=== PATIENT | male | born 1945 | race Caucasian/White ===

== ENCOUNTER 2021-01-10 10:08 | Observation (INO) | payer MEDICARE ==
[2021-01-10] MEDS ORDERED: SODIUM CHLORIDE 0.9% 800 ML IV ONE (11:03)
[2021-01-10] MEDS ORDERED: ASPIRIN 325 MG TAB PO STA (11:06)
[2021-01-10] MEDS ORDERED: ALPRAZolam 0.25 MG TAB PO PRN (11:06)
[2021-01-10] MEDS ORDERED: ATORVASTATIN 80 MG TAB PO STA (11:06)
[2021-01-10] MEDS ORDERED: NITROGLYCERIN SL TABS 0.4 MG TAB SUBLINGUAL PRN ×2 (11:06→12:56)
[2021-01-10] MEDS ORDERED: SODIUM CHLORIDE 0.9% 1,000 ML in EMPTY BAG 1 BAG IV ONE (11:06)
[2021-01-10] MEDS ORDERED: ALPRAZolam 0.5 MG TAB PO PRN (11:06)
[2021-01-10] MEDS ORDERED: VERAPAMIL 2.5 MG/ML 2 ML AMP ONE (11:19)
[2021-01-10] MEDS ORDERED: LIDOCAINE 1% INJ 10MG/ML (20 ML MDV) ONE (11:19)
[2021-01-10] MEDS ORDERED: MIDAZOLAM 2 MG/2 ML VIAL IV ONE (11:35)
[2021-01-10] MEDS ORDERED: LIDOCAINE 1% INJ 10MG/ML (20 ML MDV) SQ ONE (11:40)
[2021-01-10] MEDS ORDERED: BIVALIRUDIN BOLUS 250 MG/50 ML IV ONE (11:43)
[2021-01-10] MEDS ORDERED: BIVALIRUDIN 250 MG in SODIUM CHLORIDE 0.9% 50 ML IV ONE (11:44)
[2021-01-10] MEDS ORDERED: NITROGLYCERIN 1000MCG/10ML SYRINGE INTRACORON ONE (11:55)
[2021-01-10] MEDS ORDERED: niCARdipine 25 MG/10 ML VIAL ONE (12:03)
[2021-01-10] MEDS ORDERED: niCARdipine Syringe (1,000 mcg/10 mL) INTRACORON ONE (12:05)
[2021-01-10] MEDS ORDERED: fentaNYL (PF) 50 MCG/ML 2 ML AMP ONE (12:27)
[2021-01-10] MEDS ORDERED: fentaNYL (PF) 50 MCG/ML 2 ML AMP IV ONE (12:28)
[2021-01-10] MEDS ORDERED: TICAGRELOR 90 MG TAB PO ONE (12:30)
[2021-01-10] MEDS ORDERED: TICAGRELOR 90 MG TAB ONE (12:30)
[2021-01-10] MEDS ORDERED: IOPAMIDOL-370 125ML BTL INJ ONE (12:36)
[2021-01-10] MEDS ORDERED: MAG HYDROX/AL HYDROX/SIMETH 30 ML CUP PO PRN (12:56)
[2021-01-10] MEDS ORDERED: RX INFO: IV CONTRAST WAS GIVEN 1 EACH MISC MISCELLANE PRN (12:56)
[2021-01-10] MEDS ORDERED: ATROPINE SULFATE 0.1 MG/ML 10ML SYRINGE IV PRN (12:56)
[2021-01-10] MEDS ORDERED: ZOLPIDEM 5 MG TAB PO PRN (12:56)
[2021-01-10] MEDS ORDERED: ONDANSETRON 4 MG/2 ML VIAL ONE (12:59)
[2021-01-10] MEDS ORDERED: SODIUM CHLORIDE 0.9% 1,000 ML IV SCH (13:00)
[2021-01-10] MEDS ORDERED: ONDANSETRON 4 MG/2 ML VIAL IVP PRN (13:19)
--- NOTE | 2021-01-10 13:53 | PTCA ---
PERCUTANEOUSTRANS CORORONARY ANGIOGRAPHY DATE OF SERVICE: January 10, 2021 PERFORMING PHYSICIAN: Azeem Burton MD PROCEDURE PERFORMED: 1. Successful stenting of the proximal to mid right coronary artery using a 4.0 x 23 mm Xience drug-eluting stent with an excellent angiographic result and reduction of stenosis from 99.9% to 0%. 2. Successful atherectomy of the proximal left anterior descending artery. 3. Successful stenting of the proximal left anterior descending artery using 3.5 x 23 mm Xience drug-eluting stent with an excellent angiographic result and reduction of stenosis from 90% to 0%. INDICATION: This is a 75-year-old gentleman with hypertension and dyslipidemia who presented to the hospital initially at [facility] with chest discomfort and ruled in for acute coronary syndrome. He underwent a heart catheterization over there and that revealed critical disease involving the RCA and LAD and because of that he was brought today to undergo an intervention on both. APPROACH: Right common femoral artery. COMPLICATION: None. LEVEL OF SEDATION: Moderate with sedation length of 61 minutes. PROCEDURE DESCRIPTION: Please refer to the diagnostic heart catheterization that was performed earlier today at [facility]. After obtaining an informed consent, the patient was brought to the cardiac laboratory operations coordinator. The right common femoral artery was cannulated using micropuncture technique, the micropuncture wire passed easily then I placed a 6-Thai sheath at the right femoral artery. Anticoagulation at that point was initiated using Angiomax and the patient was given a bolus and drip per protocol. After that I did engage the RCA using JR4 guide wire. The RCA after that was wired using a Whisper wire. Subsequently I did PTCA ballooning of the RCA using a 2.5 x 15 mm balloon before I deployed 4.0 x 23 mm Xience drug-eluting stent where the stent was positioned under fluoroscopy guidance and deployed under 12 atmospheres for 20 seconds. I post-dilated the stent using 4 mm NC balloon which was inflated under 18 atmospheres for 20 seconds with the following angiogram showing excellent angiographic results. For the left anterior descending artery, I did engage the left main using an XB3.5 LAD guide. I did wire the LAD initially using a long Whisper wire. Then I did exchange my wire into ViperWire using Teleport catheter. After that subsequently, I did atherectomy of the proximal left anterior descending artery using the orbital atherectomy device using 2 runs under low speed. After that, balloon angioplasty was performed using 3.0 x 15 mm balloon before I deployed 3.5 x 23 mm Xience drug-eluting stent where the stent again was positioned under fluoroscopy guidance and deployed under its nominal pressure. The final angiogram showed excellent angiographic results and the procedure was completed without any complication. POSTPROCEDURE MANAGEMENT: 1. Dual anti-platelet therapy. 2. Risk factor modifications. 3. Aggressive cholesterol control. 4. Follow up with the patient. MMODL / IJN: [id number] /
[2021-01-10 13:55] VITALS: BMI 26.6
--- NOTE | 2021-01-10 15:47 | LTR ---
January 10, 2021 Re: Ramon Kumar Dear Dr. Tobias: Mr. Ramon Kumar underwent today heart catheterization and that revealed critical disease involving the RCA and LAD. He underwent successful stenting of both with an excellent angiographic result and without any complication. I want to thank you for allowing us to participate in his care and please do not hesitate to call if you have any question or concern. Sincerely, Azeem Burton MD MMCLAUDIA / JODIEN: [id number] /
[2021-01-10] MEDS: ACETAMINOPHEN TAB 325 MG TAB PO PRN ×2 (16:00→22:56)
[2021-01-10] MEDS: TICAGRELOR 90 MG TAB PO SCH (20:13)
[2021-01-10] MEDS ORDERED: ATORVASTATIN 80 MG TAB PO SCH (21:00)
[2021-01-11 00:18] VITALS: RESP 16
[2021-01-11] MEDS: TICAGRELOR 90 MG TAB PO SCH (08:56)
[2021-01-11] MEDS ORDERED: ASPIRIN 81 MG PO SCH (09:00)
[2021-01-11 09:29] LABS: African American GFR (CKD) >90 (>60 ml/min/1.73 sqM); Non-African American GFR(CKD) 85 (>60 ml/min/1.73 sqM)
[2021-01-11 09:32] VITALS: TEMP 97.5
[2021-01-11] MEDS: ACETAMINOPHEN TAB 325 MG TAB PO PRN (09:35)
[2021-01-11] MEDS ORDERED: lisinopriL 5 MG TAB PO SCH (09:45)
--- NOTE | 2021-01-11 12:13 | P.HPIM ---
History of Present Illness 72-year-old pleasant male was admitted at [facility] for chest pain patient is found to have a anterolateral ST-T wave changes with the ST depressions with mildly elevated troponin patient was started on heparin Underwent Cardiac Catheterization Which Showed Occlusion of RCA and LAD. Patient Was Subsequently Transferred Here. Patient Received Stents to Mid RCA and Proximal LAD. Patient had an ejection fraction of around 50 wasn't the patient is clinically doing well patient was started on dual antiplatelet therapy beta prudencio and a statin and an ROSELINE inhibitor and patient will be discharged today. Review of Systems REVIEW OF SYSTEMS: CONSTITUTIONAL: No fever, no malaise, no fatigue. HEENT: No recent visual problems or hearing problems. Denied any sore throat. CARDIOVASCULAR: No chest pain, orthopnea, PND, no palpitations, no syncope. PULMONARY: No shortness of breath, no cough, no hemoptysis. GASTROINTESTINAL: No diarrhea, no nausea, no vomiting, no abdominal pain. NEUROLOGICAL: No headaches, no weakness, no numbness. HEMATOLOGICAL: Denies any bleeding or petechiae. GENITOURINARY: Denies any burning micturition, frequency, or urgency. MUSCULOSKELETAL/RHEUMATOLOGICAL: Denies any joint pain, swelling, or any muscle pain. ENDOCRINE: Denies any polyuria or polydipsia. The rest of the 14-point review of systems is negative. Past Medical History Additional Past Medical History / Comment(s): & pancreatitis History of Any Multi-Drug Resistant Organisms: None Reported Past Surgical History: Cholecystectomy, Hernia Repair Past Anesthesia/Blood Transfusion Reactions: No Reported Reaction Past Psychological History: No Psychological Hx Reported Smoking Status: Former smoker - Past Family History Son(s) Additional Family Medical History / Comment(s): cardiac valve replacement x3, son from pancreatitis Father Family Medical History: Congestive Heart Failure (CHF) Mother Family Medical History: Renal Disease Medications and Allergies Home Medications Medication Instructions Recorded Confirmed Type Aspirin 81 mg PO DAILY #30 chew 01/11/21 Rx Atorvastatin [Lipitor] 80 mg PO HS #30 tab 01/11/21 Rx Nitroglycerin Sl Tabs [Nitrostat] 0.4 mg SUBLINGUAL Q5M PRN #30 tab 01/11/21 Rx Ticagrelor [Brilinta] 90 mg PO BID #60 tab 01/11/21 Rx lisinopriL [Zestril] 5 mg PO DAILY #30 tab 01/11/21 Rx Allergies Allergy/AdvReac Type Severity Reaction Status Date / Time No Known Allergies Allergy Verified 01/10/21 14:58 Physical Exam Vitals: Vital Signs Temp Pulse Resp BP Pulse Ox 01/11/21 08:00 97.5 F L 51 L 16 158/82 94 L 01/11/21 03:47 97.4 F L 53 L 16 167/81 99 01/11/21 00:00 97.5 F L 52 L 16 148/83 97 01/10/21 20:00 97.6 F 55 L 18 141/77 97 01/10/21 17:15 48 L 16 167/80 96 01/10/21 16:15 55 L 16 141/73 95 01/10/21 15:15 56 L 151/77 01/10/21 14:45 52 L 154/84 01/10/21 14:15 45 L 16 160/74 94 L 01/10/21 14:00 45 L 160/76 01/10/21 13:49 45 L 16 01/10/21 13:45 45 L 158/80 01/10/21 13:30 97.6 F 44 L 16 165/79 96 01/10/21 13:00 54 L 18 170/79 98 Intake and Output 01/10/21 01/11/21 01/11/21 22:59 06:59 14:59 Intake Total 240 240 120 Output Total 500 500 Balance -260 -260 120 Intake: Oral 240 240 120 Output: Urine 500 500 Other: Voiding Method Urinal Urinal # Voids 1 1 Weight 83.5 kg PHYSICAL EXAMINATION: GENERAL: The patient is alert and oriented x3, not in any acute distress. Well developed, well nourished. HEENT: Pupils are round and equally reacting to light. EOMI. No scleral icterus. No conjunctival pallor. Normocephalic, atraumatic. No pharyngeal erythema. No thyromegaly. CARDIOVASCULAR: S1 and S2 present. No murmurs, rubs, or gallops. PULMONARY: Chest is clear to auscultation, no wheezing or crackles. ABDOMEN: Soft, nontender, nondistended, normoactive bowel sounds. No palpable organomegaly. MUSCULOSKELETAL: No joint swelling or deformity. EXTREMITIES: No cyanosis, clubbing, or pedal edema. NEUROLOGICAL: Gross neurological examination did not reveal any focal deficits. SKIN: No rashes. Results CBC & Chem 7: 01/11/21 08:02 Thrombosis Risk Factor Assmnt - Choose All That Apply Any of the Below Risk Factors Present?: Yes Each Factor Represents 1 point: Medical pt on bed rest Other Risk Factors: Yes Each Risk Factor Represents 2 Points: Age 61-74 years Other congenital or acquired thrombophilia - If yes, enter type in comment: No Thrombosis Risk Factor Assessment Total Risk Factor Score: 3 Thrombosis Risk Factor Assessment Level: Moderate Risk Assessment and Plan Plan: -Acute non-ST elevation myocardial infarction: Patient is status post cardiac catheterization and stenting as mentioned above. -Acute renal failure renal azotemia improved now -Hyperlipidemia -Hypertension As mentioned above patient will be discharged today
--- NOTE | 2021-01-11 12:13 | P.DS ---
Providers Date of admission: 01/10/21 10:08 Attending physician: Beata Short Consults: 01/10/21 12:56 Consult Physician Routine Consulting Provider: [facility] Consult Reason/Comments: Post Interventional patient Do you want consulting provider notified?: Already Contacted Primary care physician: Azeem Burton [facility] Hospital Course: As mentioned in HPI Plan - Discharge Summary Discharge Rx Participant: No New Discharge Prescriptions: New Aspirin 81 mg PO DAILY #30 chew Ticagrelor [Brilinta] 90 mg PO BID #60 tab Atorvastatin [Lipitor] 80 mg PO HS #30 tab Nitroglycerin Sl Tabs [Nitrostat] 0.4 mg SUBLINGUAL Q5M PRN #30 tab PRN Reason: Chest Pain lisinopriL [Zestril] 5 mg PO DAILY #30 tab Discharge Medication List Aspirin 81 mg PO DAILY #30 chew 01/11/21 [Rx] Atorvastatin [Lipitor] 80 mg PO HS #30 tab 01/11/21 [Rx] Nitroglycerin Sl Tabs [Nitrostat] 0.4 mg SUBLINGUAL Q5M PRN #30 tab 01/11/21 [Rx] Ticagrelor [Brilinta] 90 mg PO BID #60 tab 01/11/21 [Rx] lisinopriL [Zestril] 5 mg PO DAILY #30 tab 01/11/21 [Rx] Follow up Appointment(s)/Referral(s): Azeem Burton MD [Primary Care Provider] - 1 Week Patient Instructions/Handouts: Cardiac Rehabilitation (ED), Coronary Intravascular Stent Placement (DC), After Radial Heart Catheterization (GEN), Procedural Sedation (ED), Angio-Seal (GEN) Discharge Disposition: HOME SELF-CARE
[2021-01-11 12:16] VITALS: BP 154/77; PULSE 52
--- NOTE | 2021-01-11 14:14 | P.PN ---
Subjective Progress Note Date: 01/11/21 HISTORY OF PRESENT ILLNESS: Patient is status post cardiac catheterization with stenting of the proximal to mid RCA, arthrectomy of the proximal left anterior descending artery, and s tenting of the proximal LAD. Patient examined this morning at the bedside. Patient denies chest pain or pressure. He denies shortness of breath. Patient with resting bradycardia with heart rate in the 50s. He is currently not on any beta blockers. Blood pressure elevated this morning with a systolic in the 150s. PHYSICAL EXAM: VITAL SIGNS: Reviewed. GENERAL: Well-developed in no acute distress. NECK: Supple. No JVD or thyromegaly LUNGS: Respirations even and unlabored. Lungs essentially clear to auscultation bilaterally. HEART: Regular rate and rhythm. S1 and S2 heard. EXTREMITIES: Normal range of motion. No clubbing or cyanosis. Peripheral pulses intact. No lower extremity edema. Cath site with pulse present. ASSESSMENT: Non-STEMI, status post cardiac catheterization with PCI to LAD and RCA Hypertension Hyperlipidemia PLAN: Continue dual antiplatelet therapy with aspirin and Brilinta Continue Lipitor Add Lisinopril 5 mg daily for optimal blood pressure control No beta prudencio added to patient's regimen secondary to resting bradycardia Patient is stable for discharge home today from a cardiac stand point. He is to follow up outpatient with Dr. Burton Nurse practitioner note has been reviewed by physician. Signing provider agrees with the documented findings, assessment, and plan of care. Objective - Vital Signs Vital signs: Vital Signs Temp 97.5 F L 01/11/21 08:00 Pulse 52 L 01/11/21 12:00 Resp 16 01/11/21 12:00 BP 154/77 01/11/21 12:00 Pulse Ox 97 01/11/21 12:00 Intake & Output 01/10/21 01/11/21 01/11/21 18:59 06:59 18:59 Intake Total 173 480 120 Output Total 1000 Balance 173 -520 120 Weight 88.904 kg 83.5 kg Intake: IV 173 Oral 480 120 Output: Urine 1000 Other: Voiding Method Urinal # Voids 1 1 - Labs CBC & Chem 7: 01/11/21 08:02
== END 2021-01-11 15:16 | disposition home or self-care (01) ==
LOC: 2ORMAIN 10:08 → 3SCARD 12:59
PROVIDERS: ADMIT Internal Medicine; ATTEND Internal Medicine
DX: I21.4 Non-ST elevation (NSTEMI) myocardial infarction (principal); I25.10 Atherosclerotic heart disease of native coronary artery without angina pectoris; E78.5 Hyperlipidemia, unspecified; N17.9 Acute kidney failure, unspecified; I10 Essential (primary) hypertension; R00.1 Bradycardia, unspecified; Z87.19 Personal history of other diseases of the digestive system; Z90.49 Acquired absence of other specified parts of digestive tract; Z87.891 Personal history of nicotine dependence; Z79.82 Long term (current) use of aspirin; Z79.899 Other long term (current) drug therapy; Z79.02 Long term (current) use of antithrombotics/antiplatelets; Z82.49 Family history of ischemic heart disease and other diseases of the circulatory system; Z83.79 Family history of other diseases of the digestive system
CPT/HCPCS: 82565; G0379; G0378 ×2; C9600; C9602; C1760; C1769 ×4; C1887 ×2; C1725 ×3; C1894; C1724; C1874; J2250; J2405; J2001; J3010; J0583; Q9967

== ENCOUNTER → 2023-04-04 | Outpatient (CLI) | payer MEDICARE ==
--- NOTE | 2023-04-06 08:30 | CT ---
EXAMINATION TYPE: CT cervical spine wo con DATE OF EXAM: 04/04/2023 COMPARISON: Outside CT dated December 21, 2022 HISTORY: Cervical fracture from fall in December CT DLP: [address] of the cervical spine was performed with bone and soft tissue window settings submitted . Coronal and sagittal reconstruction is obtained. Previously noted fracture of the right lateral mass of C2 is redemonstrated as portions of the fractu re continue to be visible however there is interval callus formation noted. No additional fractures a re seen. Moderate multilevel degenerative disc space narrowing and spondylosis seen at C4-5, C5-6 and C6-7. Central stenosis are not excluded C5-6. Generative change of the cervical apophyseal joints re sulting in bilateral neural foraminal encroachment at each of these levels. IMPRESSION: Interval partial union of right lateral mass fracture C2. Portions of the fracture contin ue to be visible however there is interval callus formation.
== END | disposition home or self-care (01) ==
LOC: RADCTMAIN 11:11
PROVIDERS: ATTEND Orthopaedic Surgery
DX: S12.100A Unspecified displaced fracture of second cervical vertebra, initial encounter for closed fracture (principal); M47.812 Spondylosis without myelopathy or radiculopathy, cervical region; M50.321 Other cervical disc degeneration at C4-C5 level; X58.XXXA Exposure to other specified factors, initial encounter
CPT/HCPCS: 72125

== ENCOUNTER 2024-02-22 20:57 | Emergency (ER) | payer MEDICARE ==
[2024-02-22 21:28] VITALS: TEMP 98.4
[2024-02-22] MEDS: SODIUM CHLORIDE 0.9% 1,000 ML IV STA (21:53)
[2024-02-22 22:04] LABS: Basophils % (A) 0 %; Eosinophils # (A) 0.1 k/uL (0-0.7); Eosinophils % (A) 1 %; HCT 42.2 % (39.0-53.0); HGB 14.1 gm/dL (13.0-17.5); Lymphocytes # (A) 1.6 k/uL (1.0-4.8); Lymphocytes % (A) 14 %; MCH 32.6 pg (25.0-35.0); MCHC 33.5 g/dL (31.0-37.0); MCV 97.4 fL (80.0-100.0); Mean Platelet Volume 8.2; Monocytes # (A) 0.4 k/uL (0-1.0); Monocytes % (A) 4 %; Neutrophils % (A) 80 %; Platelet Count 192 k/uL (150-450); RBC 4.33 m/uL (4.30-5.90); RDW 13.1 % (11.5-15.5); WBC 11.3 k/uL (3.8-10.6)
[2024-02-22 22:06] LABS: Appearance,Urine Clear (Clear); Bilirubin,Urine Negative (Negative); Blood,Urine Negative (Negative); Color,Urine Colorless; Glucose,Urine (UA) Negative (Negative); Ketones,Urine Negative (Negative); Leukocyte Esterase,Urine Negative (Negative); Nitrite,Urine Negative (Negative); PH, Urine 5.5 (5.0-8.0); Protein,Urine Negative (Negative); Specific Gravity,Urine 1.003 (1.001-1.035); Urobilinogen,Urine <2.0 mg/dL (<2.0)
--- NOTE | 2024-02-22 22:09 | CT ---
EXAMINATION TYPE: CT brain wo con CT DLP: 1130.4 mGycm, Automated exposure control for dose reduction was used. DATE OF EXAM: 02/22/2024 9:54 PM COMPARISON: None. CLINICAL INDICATION:Male, 78 years old with history of weakness, Increased weakness TECHNIQUE: Brain: Axial CT images of the brain were obtained with coronal and sagittal reformats created and rev iewed. Contrast used: None. Oral contrast used: None. FINDINGS: Extra-axial spaces: No abnormal extra-axial fluid collections. Basilar cisterns are patent. Ventricular system: Ventricles appear dilated in proportion to the degree of cerebral atrophy. Cerebral parenchyma: No increased attenuation to suggest acute intraparenchymal hemorrhage. The gra y-white matter interface appears maintained. Mild generalized brain atrophy. Scattered hypoattenuat ing areas are seen within the cerebral white matter, nonspecific but most often seen with chronic justine rovascular ischemic changes; mild in degree. Cerebellum: No acute abnormality. Mass effect: No evidence of mass effect or midline shift. Intracranial vasculature: Atherosclerotic calcifications of the larger arteries near the skull base. Soft tissues: No acute or concerning abnormality. Visualized orbits: Orbital contents appear grossly intact. Calvarium/osseous structures: No evidence of calvarial fracture. Paranasal sinuses and mastoid air cells: Clear. MRI is more sensitive for detecting acute processes such as infarct, and may be considered if clinica lly warranted. IMPRESSION: 1. No acute intracranial CT abnormality. 2. Mild atrophy and chronic microvascular ischemic changes.
[2024-02-22 22:14] VITALS: PULSE 64
[2024-02-22 22:20] LABS: INR 0.9 (<1.2); Partial Thromboplastin Time 22.6 sec (22.0-30.0); Prothrombin Time 10.2 sec (10.0-12.5)
[2024-02-22 22:28] LABS: ALT 23 U/L (4-49); AST 29 U/L (17-59); African American GFR (CKD) >90 (>60 ml/min/1.73 sqM); Albumin 3.6 g/dL (3.5-5.0); Alkaline Phosphatase 102 U/L (38-126); Anion Gap 6 mmol/L; Blood Urea Nitrogen 15 mg/dL (9-20); Calcium 8.8 mg/dL (8.4-10.2); Carbon Dioxide 24 mmol/L (22-30); Chloride 113 mmol/L (98-107); Glucose 94 mg/dL (74-99); Magnesium 1.9 mg/dL (1.6-2.3); Non-African American GFR(CKD) 82 (>60 ml/min/1.73 sqM); Potassium 3.9 mmol/L (3.5-5.1); Sodium 143 mmol/L (137-145); Total Bilirubin 0.3 mg/dL (0.2-1.3); Total Protein 6.2 g/dL (6.3-8.2)
[2024-02-22 23:00] LABS: Alcohol 187 mg/dL
--- NOTE | 2024-02-22 23:02 | ED ---
General Adult HPI - General Chief complaint: Alcohol Stated complaint: alcohol Time Seen by Provider: 02/22/24 21:22 Source: patient, EMS Mode of arrival: EMS Limitations: no limitations - History of Present Illness Initial comments: Patient is a 78-year-old male who presents emergency department complaining of alcohol intoxication. EMS was called as the patient states he felt different earlier. [place] weak after rolling out of bed. Denies hitting his head or loss consciousness. Denies any headache or blurry vision. Endorses drinking alcohol as it is the anniversary of his son's passing yesterday. States he had multiple gin and tonics earlier today. Denies being on blood thinners. Denies any fevers, chills, chest pain, abdominal pain, nausea, vomiting. States that when he rolled onto the floor he felt weak and unable to move however this is passed. Has been ambulatory here. Denies any other acute complaints at this time. Presents for further evaluation. Has a history of chronic alcohol abuse. He is asking to go home. Presents initially by himself. - Related Data Previous Rx's Medication Instructions Recorded Aspirin 81 mg PO DAILY #30 chew 01/11/21 Atorvastatin [Lipitor] 80 mg PO HS #30 tab 01/11/21 Nitroglycerin Sl Tabs [Nitrostat] 0.4 mg SUBLINGUAL Q5M PRN #30 tab 01/11/21 Ticagrelor [Brilinta] 90 mg PO BID #60 tab 01/11/21 lisinopriL [Zestril] 5 mg PO DAILY #30 tab 01/11/21 Allergies Allergy/AdvReac Type Severity Reaction Status Date / Time No Known Allergies Allergy Verified 01/10/21 14:58 Review of Systems ROS Statement: Those systems with pertinent positive or pertinent negative responses have been documented in the HPI. Review of Systems: CONST: Denies fever EYES: Denies blurry vision ENT: Denies nasal congestion C/V: Denies Chest pain RESP: Denies shortness of breath GI: Denies abdominal pain : Denies dysuria SKIN: Denies rash. MSK: Denies joint pain. NEURO: Denies headache ROS Other: All systems not noted in ROS Statement are negative. Past Medical History Additional Past Medical History / Comment(s): & pancreatitis History of Any Multi-Drug Resistant Organisms: None Reported Past Surgical History: Cholecystectomy, Hernia Repair Past Anesthesia/Blood Transfusion Reactions: No Reported Reaction Past Psychological History: No Psychological Hx Reported Smoking Status: Former smoker - Past Family History Son(s) Additional Family Medical History / Comment(s): cardiac valve replacement x3, son from pancreatitis Father Family Medical History: Congestive Heart Failure (CHF) Mother Family Medical History: Renal Disease General Exam - General Exam Comments Initial Comments: General: Appears acutely intoxicated with alcohol. HEAD: Normal with no signs of head trauma. Negative Gatica sign. Negative raccoon eyes. EYES: PERRLA, EOMI, conjunctiva normal, no discharge. Pupils are 3 mm and equal bilaterally. ENT: Hearing grossly intact, normal oropharynx. RESPIRATORY: Clear breath sounds bilaterally. No wheezes, rales, or rhonchi. C/V: Regular rate and rhythm. S1 and S2 auscultated, no edema, peripheral pulses 2+ and intact throughout ABD: Abd is soft, nontender, nondistended EXT: Normal range of motion, no obvious deformity SKIN: No rashes or lesions observed on exposed skin. NEURO: Alert and oriented x 4. Cranial nerves II-XII intact. No focal sensory or strength deficits. ECS of 15. NIH is 0. Limitations: no limitations Course Vital Signs 02/22/24 02/22/24 02/22/24 21:01 21:55 23:00 Temperature 98.4 F Pulse Rate 94 64 64 Respiratory 16 18 24 Rate Blood Pressure 127/91 122/80 143/77 O2 Sat by Pulse 97 97 Oximetry Medical Decision Making - Medical Decision Making Was pt. sent in by a medical professional or institution (IRA[facility] Conrad, SCHO[employer]GE LEAD TEACHER, urgent care, hospital, or snf...) When possible be specific @ -No Did you speak to anyone other than the patient for history (EMS, parent, family, police, friend...)? What history was obtained from this source @ -No Did you review nursing and triage notes (agree or disagree)? Why? @ -I reviewed and agree with nursing and triage notes Were old charts reviewed (outside hosp., previous admission, EMS record, old EKG, old radiological studies, urgent care reports/EKG's, snf records)? Report findings @ -Old charts reviewed Differential Diagnosis (chest pain, altered mental status, abdominal pain women, abdominal pain men, vaginal bleeding, weakness, fever, dyspnea, syncope, headache, dizziness, GI bleed, back pain, seizure, CVA, palpatations, mental health, musculoskeletal)? @ -Alcohol intoxication, electrolyte abnormality, intracranial injury. This list is not all inclusive. EKG interpreted by me (3pts min.). @ -As above X-rays interpreted by me (1pt min.). @ -None done CT interpreted by me (1pt min.). @ -CT brain reveals no obvious acute intracranial process. U/S interpreted by me (1pt. min.). @ -None done What testing was considered but not performed or refused? (CT, X-rays, U/S, labs)? Why? @ -None What meds were considered but not given or refused? Why? @ -None Did you discuss the management of the patient with other professionals (professionals i.e. , PA, SCHOOL AGE LEAD TEACHER, lab, RT, psych nurse, social sciences department chair, box feeder, teacher, corporate security officer, case fitter)? Give summary @ -No Was smoking cessation discussed for >3mins.? @ -No Was critical care preformed (if so, how long)? @ -No Were there social determinants of health that impacted care today? How? (Homelessness, low income, unemployed, alcoholism, drug addiction, transp ortation, low edu. Level, literacy, decrease access to med. care, care home, rehab)? @ -No Was there de-escalation of care discussed even if they declined (Discuss DNR or withdrawal of care, Hospice)? DNR status @ -No What co-morbidities impacted this encounter? (DM, HTN, Smoking, COPD, CAD, Cancer, CVA, ARF, Chemo, Hep., AIDS, mental health diagnosis, sleep apnea, morbid obesity)? @ -None Was patient admitted / discharged? Hospital course, mention meds given and route, prescriptions, significant lab abnormalities, going to OR and other pertinent info. @ -Based on patient's presentation and physical exam, presents emergency department complaining of weakness as well as a fall at home. States symptoms have all resolved. Would like to go home at this time. Does endorse drinking more alcohol than normal over the last 2 days as it is the anniversary of his son's passing. Keeps asking to leave at this time however patient is acutely toxic with alcohol and he does consent to CT brain as well as basic labs and EKG while we wait for family to arrive to take him home. Vital signs are currently within acceptable limits. He will be given IV fluids. No obvious injuries from falling out of bed. EKG showed no signs of acute ischemia. CT brain unremarkable. Laboratory studies within acceptable limits including normal urinalysis. Alcohol level is elevated at 187. At this time, family is at bedside. Patient remains unchanged from presentation. No acute complaints. Would like to go home. I believe this is reasonable as he has a ride home. He has no complaints at this time. Workup unremarkable. Strict return precautions discussed. I instructed the patient to follow up with their PCP in the next 1-3 days. I explained that the patient should return to the emergency department if they experience any worsening symptoms. Strict return precautions were discussed with the patient. The patient expressed understanding of these instructions. I answered all questions that the patient had. The patient was discharged home in good condition with their prescriptions and follow up information. Undiagnosed new problem with uncertain prognosis? @ -No Drug Therapy requiring intensive monitoring for toxicity (Heparin, Nitro, Insulin, Cardizem)? @ -No Were any procedures done? @ -No Diagnosis/symptom? @ -Alcohol intoxication, fall Acute, or Chronic, or Acute on Chronic? @ -Acute Uncomplicated (without systemic symptoms) or Complicated (systemic symptoms)? @ -Complicated Side effects of treatment? @ -No Exacerbation, Progression, or Severe Exacerbation? @ -No Poses a threat to life or bodily function? How? (Chest pain, USA, AR, pneumonia, PE, COPD, DKA, ARF, appy, cholecystitis, CVA, Diverticulitis, Homicidal, Suicidal, threat to staff... and all critical care pts) @ -Unlikely - Lab Data Result diagrams: 02/22/24 21:55 02/22/24 21:55 Lab Results 02/22/24 02/22/24 02/22/24 Range/Units 21:55 21:55 21:55 WBC 11.3 H (3.8-10.6) k/uL RBC 4.33 (4.30-5.90) m/uL Hgb 14.1 (13.0-17.5) gm/dL Hct 42.2 (39.0-53.0) % MCV 97.4 (80.0-100.0) fL MCH 32.6 (25.0-35.0) pg MCHC 33.5 (31.0-37.0) g/dL RDW 13.1 (11.5-15.5) % Plt Count 192 (150-450) k/uL MPV 8.2 Neutrophils % 80 % Lymphocytes % 14 % Monocytes % 4 % Eosinophils % 1 % Basophils % 0 % Neutrophils # 9.0 H (1.3-7.7) k/uL Lymphocytes # 1.6 (1.0-4.8) k/uL Monocytes # 0.4 (0-1.0) k/uL Eosinophils # 0.1 (0-0.7) k/uL Basophils # 0.0 (0-0.2) k/uL PT 10.2 (10.0-12.5) sec INR 0.9 (<1.2) APTT 22.6 (22.0-30.0) sec Sodium (137-145) mmol/L Potassium (3.5-5.1) mmol/L Chloride (98-107) mmol/L Carbon Dioxide (22-30) mmol/L Anion Gap mmol/L BUN (9-20) mg/dL Creatinine (0.66-1.25) mg/dL Est GFR (CKD-EPI)AfAm (>60 ml/min/1.73 sqM) Est GFR (CKD-EPI)NonAf (>60 ml/min/1.73 sqM) Glucose (74-99) mg/dL Calcium (8.4-10.2) mg/dL Magnesium (1.6-2.3) mg/dL Total Bilirubin (0.2-1.3) mg/dL AST (17-59) U/L ALT (4-49) U/L Alkaline Phosphatase (38-126) U/L Total Protein (6.3-8.2) g/dL Albumin (3.5-5.0) g/dL Urine Color Colorless Urine Appearance Clear (Clear) Urine pH 5.5 (5.0-8.0) Ur Specific [place] 1.003 (1.001-1.035) Urine Protein Negative (Negative) Urine Glucose (UA) Negative (Negative) Urine Ketones Negative (Negative) Urine Blood Negative (Negative) Urine Nitrite Negative (Negative) Urine Bilirubin Negative (Negative) Urine Urobilinogen <2.0 (<2.0) mg/dL Ur Leukocyte Esterase Negative (Negative) Serum Alcohol mg/dL 02/22/24 Range/Units 21:55 WBC (3.8-10.6) k/uL RBC (4.30-5.90) m/uL Hgb (13.0-17.5) gm/dL Hct (39.0-53.0) % MCV (80.0-100.0) fL MCH (25.0-35.0) pg MCHC (31.0-37.0) g/dL RDW (11.5-15.5) % Plt Count (150-450) k/uL MPV Neutrophils % % Lymphocytes % % Monocytes % % Eosinophils % % Basophils % % Neutrophils # (1.3-7.7) k/uL Lymphocytes # (1.0-4.8) k/uL Monocytes # (0-1.0) k/uL Eosinophils # (0-0.7) k/uL Basophils # (0-0.2) k/uL PT (10.0-12.5) sec INR (<1.2) APTT (22.0-30.0) sec Sodium 143 (137-145) mmol/L Potassium 3.9 (3.5-5.1) mmol/L Chloride 113 H (98-107) mmol/L Carbon Dioxide 24 (22-30) mmol/L Anion Gap 6 mmol/L BUN 15 (9-20) mg/dL Creatinine 0.91 (0.66-1.25) mg/dL Est GFR (CKD-EPI)AfAm >90 (>60 ml/min/1.73 sqM) Est GFR (CKD-EPI)NonAf 82 (>60 ml/min/1.73 sqM) Glucose 94 (74-99) mg/dL Calcium 8.8 (8.4-10.2) mg/dL Magnesium 1.9 (1.6-2.3) mg/dL Total Bilirubin 0.3 (0.2-1.3) mg/dL AST 29 (17-59) U/L ALT 23 (4-49) U/L Alkaline Phosphatase 102 (38-126) U/L Total Protein 6.2 L (6.3-8.2) g/dL Albumin 3.6 (3.5-5.0) g/dL Urine Color Urine Appearance (Clear) Urine pH (5.0-8.0) Ur Specific [place] (1.001-1.035) Urine Protein (Negative) Urine Glucose (UA) (Negative) Urine Ketones (Negative) Urine Blood (Negative) Urine Nitrite (Negative) Urine Bilirubin (Negative) Urine Urobilinogen (<2.0) mg/dL Ur Leukocyte Esterase (Negative) Serum Alcohol 187 mg/dL - EKG Data -: EKG Interpreted by Me EKG Comments: 12-lead Electrocardiogram Interpretation Note EKG was reviewed and interpreted by myself. 12-lead ECG performed at 2109 is interpreted by me as revealing sinus rhythm with PVCs and what appears to be a right bundle branch block. At a rate of 67 beats per minute. Borderline left axis deviation. NE interval is 177 ms, QRS duration is 127 ms, QTc is 437 ms.. There were no ST or T wave abnormalities to suggest myocardial ischemia or injury. R wave progression across the precordium was satisfactory. By my interpretation this EKG is non-diagnostic for acute ischemia. Disposition Clinical Impression: Fall, Alcohol intoxication Disposition: HOME SELF-CARE Condition: Good Instructions (If sedation given, give patient instructions): Fall Prevention for Older Adults (ED), Alcohol Intoxication (ED) Is patient prescribed a controlled substance at d/c from ED?: No Referrals: Micheline Carrillo MD [Primary Care Provider] - 1-2 days Time of Disposition: 23:00
[2024-02-22 23:40] VITALS: BP 143/77; RESP 24
== END 2024-02-22 23:10 | disposition home or self-care (01) ==
LOC: EC 20:57
DX: Z04.3 Encounter for examination and observation following other accident (principal); F10.129 Alcohol abuse with intoxication, unspecified; Z87.891 Personal history of nicotine dependence; Y90.6 Blood alcohol level of 120-199 mg/100 ml
CPT/HCPCS: 82075; 36415; 93005; 80053; 83735; 85025; 85610; 85730; 81003; 70450; 99285; 96360; G0480; Q9967; 80320

== ENCOUNTER → 2024-06-01 | Outpatient (CLI) | payer MEDICARE ==
--- NOTE | 2024-06-01 09:43 | MR ---
EXAMINATION TYPE: MR Prostate wo/w con DATE OF EXAM: 06/01/2024 9:13 AM COMPARISON: None. CLINICAL INDICATION:Male, 78 years old with history of R97.20 elevated PSA; Elevated PSA. TECHNIQUE: Multi-planar, multi-sequence imaging of the pelvis is performed prior to and following the uncomplicated administration of bolus intravenous gadolinium. CONTRAST: 8 Gadavist Interpretive Criteria: PI-RADS v2.1 SERUM PSA: 04-01-24 = 8.24 5-03-25 = 5.15 SURGICAL PATHOLOGY: No data available. FINDINGS: Prostatic dimensions: 4.4 x 4.2 x 3.7 cm. "Bullet" Volume:44.75 (PSA density=0.18 ng/mL/mL) CENTRAL GLAND (Central and Transition Zones/CZ+TZ): Multiple bilateral, heterogenous appearing hypertrophic stromal nodules, without suspicious lesion. (PI-RADS 2) PERIPHERAL ZONE (PZ): Low T2 signal area in the left posterior lateral mid gland with associated high DWI and low ADC signa l measuring up to 16 x 13 x 8 mm (PI-RADS 5) SEMINAL VESICLES (SV): Symmetric and unremarkable. PERIPROSTATIC TISSUES: Unremarkable. LYMPH NODES: No enlarged pelvic lymph node. REMAINING PELVIS: Bladder wall is within normal limits given distention. No abnormal free or organized intrapelvic fluid collection. No pathologic bowel dilation or mural thickening. No hernia visualized OSSEOUS STRUCTURES: No suspicious osseous abnormality. IMPRESSION: 1. PI-RADS 5 lesion in left posterior lateral peripheral zone mid gland measuring up to 16 x 13 x 8 m m 2. Mild BPH, estimated gland volume 44.75 mL. 3. No suspicious osseous lesion. No lymphadenopathy. No evidence of prostate adenocarcinoma involving the periprostatic tissues. 4. Colonic diverticulosis.
== END | disposition home or self-care (01) ==
LOC: RADMRIMAIN 07:40
PROVIDERS: ATTEND Urology
DX: R97.20 Elevated prostate specific antigen [PSA] (principal); K57.30 Diverticulosis of large intestine without perforation or abscess without bleeding; N40.0 Benign prostatic hyperplasia without lower urinary tract symptoms
CPT/HCPCS: 72197; A9585

== ENCOUNTER → 2024-07-14 | Outpatient (CLI) | payer MEDICARE ==
[2024-07-14 15:12] LABS: Basophils # (A) 0.06 X 10*3/uL (0.00-0.10); Basophils % (A) 0.7 %; Eosinophils # (A) 0.08 X 10*3/uL (0.04-0.35); HCT 43.6 % (39.6-50.0); HGB 14.9 g/dL (13.0-17.0); Lymphocytes % (A) 21.4 %; MCH 32.7 pg (27.0-32.0); MCHC 34.2 g/dL (32.0-37.0); MCV 95.8 FL (80.0-97.0); Mean Platelet Volume 10.7 FL (9.5-12.2); Monocytes # (A) 0.55 X 10*3/uL (0.20-1.00); Monocytes % (A) 6.5 %; NRBC Per 100 WBC 0 X 10*3/uL (0.00-0.01); Neutrophils # (A) 5.89 X 10*3/uL (1.80-7.70); Neutrophils % (A) 70.2 %; Platelet Count 217 X 10*3/uL (140-440); RBC 4.55 X 10*6/uL (4.40-5.60); RDW 13.4 % (11.5-14.5)
[2024-07-14 15:24] LABS: Appearance,Urine Turbid (Clear); Bilirubin,Urine Negative (Negative); Blood,Urine Negative (Negative); Color,Urine Yellow (Yellow); Ketones,Urine Trace (Negative); Nitrite,Urine Negative (Negative); Specific Gravity,Urine 1.025 (1.001-1.030); Urobilinogen,Urine 0.2 E.U./DL
[2024-07-14 15:42] LABS: Bacteria,Urine None Seen (None Seen)
[2024-07-14 17:28] LABS: Blood Urea Nitrogen 17.8 mg/dL (9.0-27.0); Calcium 9.9 mg/dL (8.7-10.3); Carbon Dioxide 20.8 mmol/L (21.6-31.8); Chloride 119 mmol/L (96-109); Glucose 95 mg/dL (70-110); Potassium 4.6 mmol/L (3.5-5.5); Sodium 159 mmol/L (135-145)
== END | disposition home or self-care (01) ==
LOC: LABPAT 10:31
PROVIDERS: ATTEND Urology
DX: Z01.818 Encounter for other preprocedural examination (principal); R97.20 Elevated prostate specific antigen [PSA]
CPT/HCPCS: 36415; 80048; 81001; 85025; 87086

== ENCOUNTER 2024-07-20 12:17 | Day surgery (SDC) | payer MEDICARE ==
--- NOTE | 2024-07-20 14:07 | P.HPIHPCON ---
History of Present Illness H&P Date: 07/20/24 Chief Complaint: Elevated PSA This is a 79-year-old male with history of elevated PSA underwent a prostate MRI that showed evidence of a PI-RADS 5 lesion along the left mid gland. Discussed with him given this finding I do recommend proceeding with an MRI fusion biopsy. Aware of the risk which includes but not limited to bleeding, infection. He understood all the risk and agreed to proceed Consent for Procedure: I have explained the operation/procedure to the patient, including the risks, benefits, side effects, alternative therapies (including not receiving the proposed treatment or service), the likelihood of the patient achieving his/her goals, and potential recuperation problems for the procedure/sedation/analgesia, as well as any blood products, if indicated. I also explained to the patient the risks, benefits and side effects of the alternatives, as well as the risks related to not receiving the proposed procedure, care, treatment, or services. Past Medical History Past Medical History: Cancer, Hyperlipidemia, Hypertension, Osteoarthritis (OA) Additional Past Medical History / Comment(s): & pancreatitis, left hip pain, melanoma removed rt wrist. elevated PSA, ?MRI History of Any Multi-Drug Resistant Organisms: None Reported Past Surgical History: Appendectomy, Cholecystectomy, Heart Catheterization With Stent, Hernia Repair Additional Past Surgical History / Comment(s): umbilical hernia Past Anesthesia/Blood Transfusion Reactions: No Reported Reaction Date of Last Stent Placement:: 2020 Smoking Status: Former smoker - Past Family History Son(s) Additional Family Medical History / Comment(s): cardiac valve replacement x3, son from pancreatitis Father Family Medical History: Congestive Heart Failure (CHF) Mother Family Medical History: Renal Disease Medications and Allergies Home Medications Medication Instructions Recorded Confirmed Type Aspirin 81 mg PO DAILY #30 chew 01/11/21 07/15/24 Rx Atorvastatin [Lipitor] 80 mg PO HS #30 tab 01/11/21 07/15/24 Rx Nitroglycerin Sl Tabs [Nitrostat] 0.4 mg SUBLINGUAL Q5M PRN #30 tab 01/11/21 07/15/24 Rx lisinopriL [Zestril] 5 mg PO DAILY #30 tab 01/11/21 07/15/24 Rx Acetaminophen-Codeine 300-30mg 1 tab PO DIRECTED PRN 07/15/24 07/15/24 Hi story [Tylenol w/codeine #3] Ciprofloxacin 500 mg PO DIRECTED 07/15/24 07/15/24 History Allergies Allergy/AdvReac Type Severity Reaction Status Date / Time No Known Allergies Allergy Verified 07/15/24 09:19 Surgical - Exam - General no distress, no pain - Eyes normal ocular movement, no pale - ENT normal nares, normal mucosa - Respiratory normal expansion, normal respiratory effort - Abdomen Abdomen: soft, non tender Assessment and Plan Assessment: OR for MRI fusion biopsy of the prostate
[2024-07-20 14:15] VITALS: TEMP 97.1
[2024-07-20] MEDS: IV FLUID CONTINUATION 1,000 ML IV ONE (14:18)
[2024-07-20] MEDS: LACTATED RINGERS 1,000 ML IV SCH (14:21)
[2024-07-20] MEDS: LIDOCAINE 1% INJ 10MG/ML (30 ML VIAL-PF) SQ ONE (14:27)
[2024-07-20] MEDS: GENTAMICIN 40 MG/ML 2 ML VIAL IM PRN (14:46)
[2024-07-20] MEDS ORDERED: LIDOCAINE 1% INJ 10MG/ML (20 ML MDV) ONE (15:50)
[2024-07-20] MEDS ORDERED: PROPOFOL 10 MG/ML 20 ML VIAL IV ONE (15:50)
--- NOTE | 2024-07-20 16:18 | P.OP ---
Date of Procedure: 07/20/24 Preoperative Diagnosis: Elevated PSA Postoperative Diagnosis: Same Procedure(s) Performed: MRI fusion biopsy of the prostate Anesthesia: MAC Surgeon: Ruddy Zelaya Estimated Blood Loss (ml): 1 Pathology: other (Prostate biopsies) Condition: stable Disposition: PACU Indications for Procedure: This is a 79-year-old male with history of elevated PSA underwent a prostate MRI that showed evidence of a PI-RADS 5 lesion along the left mid gland. Discussed with him given this finding I do recommend proceeding with an MRI fusion biopsy. Aware of the risk which includes but not limited to bleeding, infection. He understood all the risk and agreed to proceed Description of Procedure: The patient was taken to the operating room and placed in the left lateral decubitus position. The [employer] transrectal ultrasound probe was placed intrarectally. It was then placed within the stand of the opendorse MRI/TRUS Fusion for Prostate Biopsy system. The prostate was imaged in both the axial and sagittal planes Using the Biopsy gun, 4 biopsies were obtained from the target lesion, there were was one lesions, . The remaining 12 biopsies of the peripheral zone were obtained utilizing a standard template. Once the procedure was completed, the ultrasound probe was removed. The patient tolerated the procedure well was taken to the recovery room stable condition
[2024-07-20 16:31] VITALS: BP 122/66; PULSE 58; RESP 18
== END 2024-07-20 17:21 | disposition home or self-care (01) ==
LOC: OR 12:17
PROVIDERS: ATTEND Urology
DX: C61 Malignant neoplasm of prostate (principal); E78.5 Hyperlipidemia, unspecified; I10 Essential (primary) hypertension; I25.10 Atherosclerotic heart disease of native coronary artery without angina pectoris; Z85.820 Personal history of malignant melanoma of skin; Z87.891 Personal history of nicotine dependence; Z90.49 Acquired absence of other specified parts of digestive tract; Z79.899 Other long term (current) drug therapy; Z79.82 Long term (current) use of aspirin
CPT/HCPCS: 88305

== ENCOUNTER → 2024-08-26 | Outpatient (CLI) | payer MEDICARE ==
--- NOTE | 2024-08-26 16:52 | PE ---
EXAMINATION TYPE: PET CT fusion skull to thigh DATE OF EXAM: 08/26/2024 CLINICAL INDICATION:Male, 79 years old with history of C61 PROSTATE CANCER; TECHNIQUE: Following the intravenous administration of 6.94 mCi of Ga-68 Illuccix (PSMA), whole bod y images are performed from the skull base to the midthigh. Images are reviewed on the computer in t he coronal, axial, and sagittal planes. Reconstructed rotating images are created on independent wor kstation and reviewed on the computer. A non-contrast CT is performed in conjunction with the PET s can. CT DLP: 658.06 mGycm, Automated exposure control for dose reduction was used. COMPARISON: CT 02/22/2024, 04/04/2023, PET/CT None, MRI: 06/01/2024 FINDINGS: Mediastinal SUV mean is 1.4. Hepatic parenchyma SUV mean is 7.1. SKULL BASE AND NECK: No suspicious radiotracer activity. CHEST, MEDIASTINUM, AND HILAR REGION: No suspicious radiotracer activity. ABDOMEN AND PELVIS: There is focal radiotracer activity identified within the left aspect of the prostate gland with a ma ximum SUV of 8.8. MUSCULOSKELETAL STRUCTURES: No suspicious radiotracer activity. OTHER CT: Carotid bulb calcification in the left greater than right. Bilateral shoulder arthropathy. Degenerative changes of the spine. Mild atherosclerotic calcification of the aorta and its branches. Severe coronary artery calcifications most pronounced along the LAD. Mild cardiomegaly. Elevation of the right hemidiaphragm. Gallbladder is surgically absent. Left hepatic lobe 1.2 cm hyperdense cyst. Exophytic right renal 1.8 cm probable cyst. Retroaortic left renal vein. Sigmoid diverticulosis. Pelv ic phleboliths. Osteoarthritic changes of both hips. Possible small region of osteonecrosis and the r ight femoral head. IMPRESSION: Radiotracer activity identified within the left aspect of the prostate gland related to known prostat e cancer. No other suspicious radiotracer uptake to suggest metastasis. [facility], , 08/26/2024 4:49 PM
== END | disposition home or self-care (01) ==
LOC: RADPETMAIN 11:28
PROVIDERS: ATTEND Radiology Radiation Oncology
DX: C61 Malignant neoplasm of prostate (principal)
CPT/HCPCS: 78815

== ENCOUNTER → 2024-09-13 | Outpatient (CLI) | payer MEDICARE ==
[2024-09-13 15:43] LABS: HGB 14.4 g/dL (13.0-17.0); MCHC 33.5 g/dL (32.0-37.0); MCV 98.6 FL (80.0-97.0); Mean Platelet Volume 11.2 FL (9.5-12.2); NRBC Per 100 WBC 0 X 10*3/uL (0.00-0.01); Platelet Count 195 X 10*3/uL (140-440); RBC 4.36 X 10*6/uL (4.40-5.60); WBC 7.82 X 10*3/uL (4.50-10.00)
[2024-09-13 15:44] LABS: Basophils # (A) 0.05 X 10*3/uL (0.00-0.10); Basophils % (A) 0.6 %; Eosinophils # (A) 0.08 X 10*3/uL (0.04-0.35); Lymphocytes # (A) 1.39 X 10*3/uL (0.90-5.00); Lymphocytes % (A) 17.8 %; Monocytes # (A) 0.47 X 10*3/uL (0.20-1.00); Neutrophils % (A) 74.2 %
[2024-09-13 16:32] LABS: BUN/Creat Ratio 17.89 Ratio (12.00-20.00); Blood Urea Nitrogen 16.1 mg/dL (9.0-27.0); Calcium 9.5 mg/dL (8.7-10.3); Carbon Dioxide 26.1 mmol/L (21.6-31.8); Chloride 103 mmol/L (96-109); Glucose 94 mg/dL (70-110); Sodium 139 mmol/L (135-145)
== END | disposition home or self-care (01) ==
LOC: LABPAT 09:34
PROVIDERS: ATTEND Urology
DX: Z01.812 Encounter for preprocedural laboratory examination (principal); C61 Malignant neoplasm of prostate
CPT/HCPCS: 80048; 85025

== ENCOUNTER 2024-09-21 11:35 | Day surgery (SDC) | payer MEDICARE ==
--- NOTE | 2024-09-21 09:41 | P.HPIHPCON ---
History of Present Illness H&P Date: 09/21/24 Chief Complaint: Prostate cancer This is a 79-year-old male with history of [place] 7 prostate cancer. He elected to proceed with radiation therapy. Option of a SpaceOAR gel placement was discussed with him. Aware of the risk which includes but not limited to bleeding, infection, discussed with him the rationale of doing the procedure is to reduce radiation toxicities in the rectum, discussed potential of still developing that even with a spacer placement. He understood all the risk and agreed to proceed Consent for Procedure: I have explained the operation/procedure to the patient, including the risks, benefits, side effects, alternative therapies (including not receiving the proposed treatment or service), the likelihood of the patient achieving his/her goals, and potential recuperation problems for the procedure/sedation/analgesia, as well as any blood products, if indicated. I also explained to the patient the risks, benefits and side effects of the alternatives, as well as the risks related to not receiving the proposed procedure, care, treatment, or services. Past Medical History Past Medical History: Cancer, Hyperlipidemia, Hypertension, Myocardial Infarction (MS), Osteoarthritis (OA) Additional Past Medical History / Comment(s): & pancreatitis; +prostate bx Jul 2024; hx skin ca; left hip arthritis Last Myocardial Infarction Date:: 2020 History of Any Multi-Drug Resistant Organisms: None Reported Past Surgical History: Appendectomy, Cholecystectomy, Heart Catheterization With Stent, Hernia Repair Past Anesthesia/Blood Transfusion Reactions: No Reported Reaction Date of Last Stent Placement:: 2020 Smoking Status: Former smoker - Past Family History Son(s) Additional Family Medical History / Comment(s): cardiac valve replacement x3, son from pancreatitis Father Family Medical History: Congestive Heart Failure (CHF) Mother Family Medical History: Renal Disease Medications and Allergies Home Medications Medication Instructions Recorded Confirmed Type Aspirin 81 mg PO DAILY #30 chew 01/11/21 09/17/24 Rx Atorvastatin [Lipitor] 80 mg PO HS #30 tab 01/11/21 09/17/24 Rx Nitroglycerin Sl Tabs [Nitrostat] 0.4 mg SUBLINGUAL Q5M PRN #30 tab 01/11/21 09/17/24 Rx lisinopriL [Zestril] 5 mg PO DAILY #30 tab 01/11/21 09/17/24 Rx Acetaminophen-Codeine 300-30mg 1 tab PO DIRECTED PRN 07/15/24 09/17/24 History [Tylenol w/codeine #3] Allergies Allergy/AdvReac Type Severity Reaction Status Date / Time No Known Allergies Allergy Verified 09/17/24 10:37 Surgical - Exam - General no distress, no pain - Eyes normal ocular movement, no pale - ENT normal nares, normal mucosa - Respiratory normal expansion, normal respiratory effort - Abdomen Abdomen: soft, non tender Assessment and Plan Assessment: OR for SpaceOAR gel placement
[2024-09-21] MEDS: IV FLUID CONTINUATION 1,000 ML IV ONE (12:55)
[2024-09-21] MEDS: LACTATED RINGERS 1,000 ML IV SCH (12:57)
[2024-09-21 12:59] VITALS: TEMP 97.3
[2024-09-21] MEDS ORDERED: MIDAZOLAM 2 MG/2 ML VIAL ONE (13:38)
[2024-09-21] MEDS ORDERED: PROPOFOL 10 MG/ML 20 ML VIAL IV ONE (13:38)
[2024-09-21] MEDS ORDERED: LIDOCAINE 1% INJ 10MG/ML (20 ML MDV) ONE (13:38)
[2024-09-21] MEDS ORDERED: fentaNYL (PF) 50 MCG/ML 2 ML AMP ONE (13:38)
[2024-09-21] MEDS: LIDOCAINE 2% INJ 20 MG/ML SQ ONE (14:01)
--- NOTE | 2024-09-21 14:26 | P.OP ---
Date of Procedure: 09/21/24 Preoperative Diagnosis: Prostate cancer Postoperative Diagnosis: Same Procedure(s) Performed: SpaceOAR gel placement Implants: SpaceOAR gel Anesthesia: MAC Surgeon: Ruddy Zelaya Estimated Blood Loss (ml): 5 Pathology: none sent Condition: stable Disposition: PACU Indications for Procedure: This is a 79-year-old male with history of Sentinel 7 prostate cancer. He elected to proceed with radiation therapy. Option of a SpaceOAR gel placement was discussed with him. Aware of the risk which includes but not limited to bleeding, infection, discussed with him the rationale of doing the procedure is to reduce radiation toxicities in the rectum, discussed potential of still developing that even with a spacer placement. He understood all the risk and agreed to proceed Description of Procedure: The patient was taken to the operating room and placed in the dorsolithotomy position, with his legs supported in Eladio stirrups. The external genitalia was prepped and draped sterilely. The transrectal ultrasound probe was placed intrarectally. The prostate was imaged. The probe was then placed within the stabilizing stand. A spinal needle was advanced under ultrasonic guidance to the level of the urogenital diaphragm, and lidocaine was used to infiltrate the tissues as the needle was withdrawn. Next, the SpaceOAR needle was passed through the midline of the perineum, 1-2 cm anterior to the anal opening. The needle was slowly advanced under ultrasonic guidance until the needle tip was located within the fat plane between the prostate and rectum, at the level of the mid prostate gland. The needle was confirmed to be midline on the axial imaging. A small amount of normal saline was injected for hydrodissection. Next, the SpaceOAR components were mixed and loaded into the Y connector per protocol. The Y connector was then connected to the needle, and the components were injected slowly over a course of approximately 10 seconds. A total of 10 ml was injected. Significant distance was created between the prostate and rectum, as desired. It should be noted that at no point was there any concern of rectal perforation. The needle was withdrawn, as well as the transrectal ultrasound probe, and the procedure was terminated. The patient tolerated the procedure well and was taken to the recovery room in stable condition
[2024-09-21 14:30] VITALS: BP 157/74; PULSE 51; RESP 16
== END 2024-09-21 14:43 | disposition home or self-care (01) ==
LOC: OR 11:35
PROVIDERS: ATTEND Urology
DX: C61 Malignant neoplasm of prostate (principal); E78.5 Hyperlipidemia, unspecified; I10 Essential (primary) hypertension; I25.2 Old myocardial infarction; Z85.828 Personal history of other malignant neoplasm of skin; Z87.891 Personal history of nicotine dependence; Z90.49 Acquired absence of other specified parts of digestive tract; Z98.890 Other specified postprocedural states; Z79.899 Other long term (current) drug therapy
CPT/HCPCS: 55874; C1889; J2250; J2003 ×2; J3010; J2704

== ENCOUNTER → 2025-01-11 | Outpatient (CLI) | payer MEDICARE ==
[2025-01-11 15:22] LABS: Prostate Specific Antigen 0.08 ng/mL (0.000-6.500)
[2025-01-11 15:44] LABS: Testosterone <10.00 ng/dL (86.98-780.10)
== END | disposition home or self-care (01) ==
LOC: LABWHC1 09:28
PROVIDERS: ATTEND Radiology Radiation Oncology
DX: C61 Malignant neoplasm of prostate (principal)
CPT/HCPCS: 36415; 84153; 84403

== ENCOUNTER → 2025-03-15 | Outpatient (CLI) | payer MEDICARE ==
[2025-03-15 15:57] LABS: Prostate Specific Antigen 0.17 ng/mL (0.000-6.500); Testosterone <10.00 ng/dL (86.98-780.10)
== END | disposition home or self-care (01) ==
LOC: LABWHC1 11:01
PROVIDERS: ATTEND Radiology Radiation Oncology
DX: C61 Malignant neoplasm of prostate (principal)
CPT/HCPCS: 36415; 84153; 84403